=== PATIENT | female | born 1940 | race Caucasian/White ===

== ENCOUNTER 2020-05-09 08:52 | Emergency (ER) | payer MEDICARE ==
[2020-05-10 12:01] LABS: SARS-CoV-2 MS2 Positive; SARS-CoV-2 N Gene Negative; SARS-CoV-2 S Gene Negative; SARS-CoV-2 by NAA Not Detected (NotDetected); SARS-CoV-2 orf1ab Negative
== END 2020-05-09 09:39 | disposition home or self-care (01) ==
LOC: MADERS 08:52
DX: Z20.828 Contact with and (suspected) exposure to other viral communicable diseases (principal); F17.210 Nicotine dependence, cigarettes, uncomplicated
CPT/HCPCS: 99283; U0003; 87635